=== PATIENT | male | born 1950 | race Caucasian/White ===

== ENCOUNTER 2016-11-03 13:12 | Inpatient (IN) | payer OTHER ==
[2016-11-03] MEDS ORDERED: NORVASC10 M2 PO (14:30)
[2016-11-03] MEDS ORDERED: CYCLOBENZAPRINE5 M1 PO (14:32)
[2016-11-03] MEDS ORDERED: GLUCOTROL10 M1 PO (14:32)
[2016-11-03] MEDS ORDERED: LEVEMIR FL100 UNIT/2 SC (14:34)
[2016-11-03] MEDS ORDERED: CRESTOR20 M1 PO (14:35)
[2016-11-03] MEDS ORDERED: ASPIRIN81 M1 PO (14:36)
[2016-11-03] MEDS ORDERED: ULTRAM50 M1 PO (14:36)
[2016-11-03] MEDS ORDERED: SYNTHROID112 MC1 PO (14:37)
[2016-11-03] MEDS ORDERED: GLUCOPHAGE1000 M1 PO (14:38)
[2016-11-03] MEDS ORDERED: MOBIC7.5 M2 PO (14:40)
[2016-11-03 17:57] LABS: URINE LEUKOCYTE ESTERASE NEGATIVE (NEG); URINE PROTEIN MODERATE (NEG)
[2016-11-03 19:02] LABS: URINE APPEARANCE CLEAR; URINE BILIRUBIN NEGATIVE (NEG); URINE BLOOD MODERATE (NEG); URINE COLOR PALE YELLOW; URINE GLUCOSE (UA) LARGE (NEG); URINE KETONE NEGATIVE (NEG); URINE NITRITE NEGATIVE (NEG)
[2016-11-03 19:04] LABS: URINE EPITHELIAL CELLS 0 /[HPF] (0-10); URINE RBC RARE /[HPF] (0-5); URINE WBC RARE /[HPF] (0-5)
[2016-11-03 19:40] LABS: URINE PRT/CR RATIO 0.43 Ratio (0.0-0.20); URINE TOTAL PROTEIN-RANDOM 34.7 mg/dl (<11.8)
[2016-11-04 05:53] LABS: ANION GAP 11 mmol/L (0-20); BLOOD UREA NITROGEN 34 mg/dl (6-24); CALCIUM 7.9 mg/dl (8.5-10.5); CARBON DIOXIDE-VENOUS 24 mmol/L (22-32); CHLORIDE 112 mmol/l (96-110); CREATININE 3.19 mg/dl (0.60-1.30); GLUCOSE 165 mg/dL (70-110); MAGNESIUM 2.1 mg/dl (1.3-2.6); PHOSPHOROUS 3.4 mg/dl (2.5-4.9); SODIUM 143 mmol/L (135-145); eGFR VALUE FOR BLACK 22 mL/Min
[2016-11-05 05:55] LABS: ANION GAP 12 mmol/L (0-20); BLOOD UREA NITROGEN 28 mg/dl (6-24); CALCIUM 7.9 mg/dl (8.5-10.5); CARBON DIOXIDE-VENOUS 24 mmol/L (22-32); CHLORIDE 112 mmol/l (96-110); CREATININE 2.96 mg/dl (0.60-1.30); GLUCOSE 98 mg/dL (70-110); POTASSIUM 3.9 mmol/L (3.7-5.1); SODIUM 144 mmol/L (135-145); eGFR VALUE FOR BLACK 24 mL/Min
[2016-11-05 12:51] LABS: BASO % 0.3 % (0-2); EOS % 3.5 % (0-7); EOSINOPHIL ABSOLUTE COUNT 0.3 tho/cmm (0.0-0.7); HCT-HEMATOCRIT 42.6 % (36.0-53.5); HGB-HEMOGLOBIN 14.3 gm/dl (13.5-17.0); IMMATURE GRANULOCYTES ABSOLUTE 0.02 tho/cmm (0-0.03); IMMATURE GRANULOCYTES PERCENT 0.3 % (0-0.3); LYMPH ABSOLUTE COUNT 1.1 tho/cmm (0.8-4.5); MCH (MEAN CORPUSCULAR HGB) 29.5 pg (28.0-32.0); MCHC MEAN CORPUSCULAR HGB CONC 33.6 % (32.0-36.0); MCV (MEAN CELL VOLUME) 87.8 fl (82.0-96.0); MEAN PLATELET VOLUME 11.3 cmc (9.4-12.4); MONO % 7.6 % (0-12); MONOCYTE ABSOLUTE COUNT 0.6 tho/cmm (0.0-1.2); NEUTROPHIL ABSOLUTE COUNT 5.9 tho/cmm (1.6-8.0); NEUTROPHIL-AUTOMATED 5.9 tho/cmm (1.6-8.0); NEUTROPHILS % 74.3 % (40-80); PLATELET COUNT 237 tho/cmm (150-450); RED BLOOD COUNT 4.85 mil/cmm (4.40-5.70); RED CELL DISTRIBUTION WIDTH 13.9 % (12.4-16.4); WHITE BLOOD COUNT 7.9 tho/cmm (4.0-10.0)
[2016-11-06 05:32] LABS: ANION GAP 16 mmol/L (0-20); BLOOD UREA NITROGEN 32 mg/dl (6-24); CALCIUM 8.2 mg/dl (8.5-10.5); CARBON DIOXIDE-VENOUS 19 mmol/L (22-32); CHLORIDE 112 mmol/l (96-110); CREATININE 2.67 mg/dl (0.60-1.30); GLUCOSE 125 mg/dL (70-110); SODIUM 142 mmol/L (135-145); eGFR VALUE FOR BLACK 27 mL/Min
[2016-11-06] MEDS ORDERED: TYLENOL325 M2 PO (11:36)
== END 2016-11-06 12:06 | DRG 694 ==
LOC: 5WD 13:12 → ORW 11-05 23:19 → PACU 11-06 00:09 → 5WD 11-06 00:46
PROVIDERS: Hospitalist; Urology; ADMIT Internal Medicine
PROC: BT1F1ZZ Fluoroscopy of Left Kidney, Ureter and Bladder using Low Osmolar Contrast (ICD-10-PCS; principal; 2016-11-05)
PROC: 0T778DZ Dilation of Left Ureter with Intraluminal Device, Via Natural or Artificial Opening Endoscopic (ICD-10-PCS; principal; 2016-11-05)
PROC: 3E0F7GC Introduction of Other Therapeutic Substance into Respiratory Tract, Via Natural or Artificial Opening (ICD-10-PCS; principal; 2016-11-05)
DX: N13.2 Hydronephrosis with renal and ureteral calculous obstruction (principal); N17.9 Acute kidney failure, unspecified; E03.9 Hypothyroidism, unspecified; E11.22 Type 2 diabetes mellitus with diabetic chronic kidney disease; E78.5 Hyperlipidemia, unspecified; G56.00 Carpal tunnel syndrome, unspecified upper limb; I12.9 Hypertensive chronic kidney disease with stage 1 through stage 4 chronic kidney disease, or unspecified chronic kidney disease; K21.9 Gastro-esophageal reflux disease without esophagitis; M19.90 Unspecified osteoarthritis, unspecified site; N13.9 Obstructive and reflux uropathy, unspecified; N18.3 Chronic kidney disease, stage 3 (moderate); Z79.1 Long term (current) use of non-steroidal anti-inflammatories (NSAID)
CPT/HCPCS: C2617; J0690; J1815; J7030